=== PATIENT | male | born 1950 | race Caucasian/White ===

== ENCOUNTER 2017-07-21 13:23 | Observation (INO) | payer BC ==
[2017-07-21] MEDS ORDERED: Diltiazem IV* 5 MG/ML 5 ML VIAL (for loading dose/IV Push) (25 MG) IV SLOW PU ONE (13:45)
[2017-07-21 13:47] LABS: ABS Basophils 0 10^3/ul (0-0.2); ABS Eosinophils 0 10^3/ul (0-0.6); ABS Lymphocytes 0.4 10^3/ul (1.0-4.8); ABS Monocytes 0.3 10^3/ul (0-0.8); ABS Neutrophils 3.3 10^3/ul (1.5-7.7); ABS Nucleated RBC 0 10^3/ul; Eosinophil % 0.8 % (0-6); Hematocrit 40 % (42-52); Hemoglobin 13.6 g/dl (14.0-18.0); Lymphocyte % 9.7 % (25-47); Mean Corpuscular HGB Conc 34 g/dl (31-36); Mean Corpuscular Hemoglobin 31 pg (27-31); Mean Corpuscular Volume 91 fL (80-94); Mean Platelet Volume 7.4 um3 (7.4-10.4); Nucleated Red Blood Cells % 0.1; Platelet Count 220 10^3/ul (150-450); Red Blood Count 4.38 10^6/ul (4.0-5.4); Red Cell Distribution Width 15 % (10.5-15)
[2017-07-21] MEDS: NS 0.9% 1000 ML* 2,000 ML IV ONE ×2 (14:07→14:08)
[2017-07-21] MEDS ORDERED: Magnesium Sulfate 2 GM IV* 2 GM/50 ML BAG IVPB ONE (14:12)
[2017-07-21 14:18] LABS: INR 0.98 (0.77-1.02)
--- NOTE | 2017-07-21 14:22 | RAD ---
INDICATION: No onset rapid atrial fibrillation. COMPARISON: Comparison is made with prior chest x-ray study from March 30, 2017. TECHNIQUE: A portable view of the chest was obtained. FINDINGS: Cardiac and mediastinal contours appear to be within normal limits. The lungs are clear. No pleural effusion is seen. IMPRESSION: NO EVIDENCE FOR ACUTE DISEASE.
[2017-07-21] MEDS ORDERED: Aspirin 81 mg CHEW TAB* 81 MG TAB.CHEW PO ONE (14:38)
--- NOTE | 2017-07-21 15:52 | ED ---
Jesus Manuel Rolon Jennifer scribed for Jeramy Aldridge MD on 07/21/17 at 1337 . Palpitations / Dysrhythmia - HPI Summary HPI Summary: The patient is a 67 year old male who presents with afib that began today. The patient was prepping for a colonoscopy today, but he was found to be in afib and sent to the ED. The patient does not have a history of afib. He complains of a little shortness of breath while going up the stairs yesterday. The patient denies ankle swelling. He denies taking blood thinners. - History of Current Complaint Chief Complaint: EDDysrhythmPalp Time Seen by Provider: 07/21/17 13:24 Hx Obtained From: Patient Onset/Duration: Sudden Onset, Lasting Days - 1 day, Still Present Timing: Constant Severity Initially: Mild Severity Currently: Mild Character: Fast, Irregular Aggravating: Exertion Alleviating: Nothing Associated Signs & Symptoms: Negative - ankle swelling, Shortness of Breath - Allergy/Home Medications Allergies/Adverse Reactions: Allergies Allergy/AdvReac Type Severity Reaction Status Date / Time No Known Allergies Allergy Verified 06/14/13 09:49 Home Medications: Home Medications Cholecalciferol (Vitamin D3) [Vitamin D3] 2,000 units PO DAILY 07/21/17 [ History Confirmed 07/21/17] Cyanocobalamin TAB* [Vitamin B12 TAB*] 1,500 mcg PO DAILY 07/21/17 [History Confirmed 07/21/17] PMH/Surg Hx/FS Hx/Imm Hx Endocrine/Hematology History: Denies: Hx Diabetes Cardiovascular History: Reports: Hx Hypertension - medicated Denies: Hx Atrial Fibrillation, Hx Pacemaker/ICD History: Denies: Hx Renal Disease Musculoskeletal History: Reports: Hx Arthritis Sensory History: Reports: Hx Contacts or Glasses - GLASSES FOR NIGHT DRIVING Denies: Hx Hearing Aid Opthamlomology History: Reports: Hx Contacts or Glasses - GLASSES FOR NIGHT DRIVING Psychiatric History: Denies: Hx Panic Disorder - Surgical History Surgery Procedure, Year, and Place: 2012 COLONOSCOPY, [facility] [place]. EXCISION CYST FROM BACK, FOREHEAD AND LEFT RING FINGER, [facility] (YEARS AGO) Hx Anesthesia Reactions: No Infectious Disease History: No Infectious Disease History: Denies: Traveled Outside the [place] in Last 30 Days - Family History Known Family History: Positive: Hypertension - Father - Social History Alcohol Use: Daily Alcohol Amount: two glasses per day Substance Use Type: Reports: None Smoking Status (MU): Former Smoker Type: Cigarettes Amount Used/How Often: LESS THAN A PPD Review of Systems Positive: Palpitations, Other - Afib Positive: Shortness Of Breath Negative: Edema All Other Systems Reviewed And Are Negative: Yes Physical Exam - Summary Physical Exam Summary: General: well-appearing, no pain distress Skin: warm, color reflects adequate perfusion, dry Head: normal Eyes: EOMI, TIFF ENT: normal Neck: supple, nontender Respiratory: CTA, breath sounds present Cardiovascular: Tachycardic. Irregularly irregular rhythm. Abdomen: soft, nontender Bowel: present Musculoskeletal: normal, strength/ROM intact Neurological: normal, sensory/motor intact, A&O x3 Psychological: affect/mood appropriate Triage Information Reviewed: Yes Vital Signs On Initial Exam: Initial Vitals Temp Pulse Resp BP Pulse Ox 99.4 F 115 19 138/85 99 07/21/17 13:24 07/21/17 13:24 07/21/17 13:24 07/21/17 13:24 07/21/17 13:24 Vital Signs Reviewed: Yes Diagnostics - Vital Signs Vital Signs Temp Pulse Resp BP Pulse Ox 07/21/17 13:24 99.4 F 115 19 138/85 99 - Laboratory Lab Results: Lab Results 07/21/17 07/21/17 07/21/17 Range/Units 13:31 13:31 13:31 WBC (3.5-10.8) 10^3/ul RBC (4.0-5.4) 10^6/ul Hgb (14.0-18.0) g/dl Hct (42-52) % MCV (80-94) fL MCH (27-31) pg MCHC (31-36) g/dl RDW (10.5-15) % Plt Count (150-450) 10^3/ul MPV (7.4-10.4) um3 Neut % (Auto) (38-83) % Lymph % (Auto) (25-47) % [place] % (Auto) (0-7) % Eos % (Auto) (0-6) % Baso % (Auto) (0-2) % Absolute Neuts (auto) (1.5-7.7) 10^3/ul Absolute Lymphs (auto) (1.0-4.8) 10^3/ul Absolute Monos (auto) (0-0.8) 10^3/ul Absolute Eos (auto) (0-0.6) 10^3/ul Absolute Basos (auto) (0-0.2) 10^3/ul Absolute Nucleated RBC 10^3/ul Nucleated RBC % INR (Anticoag Therapy) 0.98 (0.77-1.02) APTT 33.5 (26.0-36.3) seconds D-Dimer, Quantitative < 200 (Less Than 230) ng/mL Sodium 140 (139-145) mmol/L Potassium 4.4 (3.5-5.0) mmol/L Chloride 106 (101-111) mmol/L Carbon Dioxide 27 (22-32) mmol/L Anion Gap 7 (2-11) mmol/L BUN 12 (6-24) mg/dL Creatinine 1.03 (0.67-1.17) mg/dL Est GFR ( Amer) 92.6 (>60) Est GFR (Non-Af Amer) 72.0 (>60) BUN/Creatinine Ratio 11.7 (8-20) Glucose 96 (70-100) mg/dL Lactic Acid (0.5-2.0) mmol/L Calcium 9.1 (8.6-10.3) mg/dL Magnesium 1.7 L (1.9-2.7) mg/dL Total Bilirubin 1.00 (0.2-1.0) mg/dL AST 19 (13-39) U/L ALT 17 (7-52) U/L Alkaline Phosphatase 89 (34-104) U/L Total Creatine Kinase 259 H (10-223) U/L CK-MB (CK-2) 16.1 H (0.6-6.3) ng/mL Troponin I 0.05 H* (<0.04) ng/mL C-Reactive Protein 1.16 (< 5.00) mg/L B-Natriuretic Peptide 243 H ( - 100) pg/mL Total Protein 5.8 L (6.4-8.9) g/dL Albumin 3.8 (3.2-5.2) g/dL Globulin 2.0 (2-4) g/dL Albumin/Globulin Ratio 1.9 (1-3) Lipase 17 (11.0-82.0) U/L TSH 1.46 (0.34-5.60) mcIU/mL 07/21/17 07/21/17 Range/Units 13:31 13:31 WBC 4.0 (3.5-10.8) 10^3/ul RBC 4.38 (4.0-5.4) 10^6/ul Hgb 13.6 L (14.0-18.0) g/dl Hct 40 L (42-52) % MCV 91 (80-94) fL MCH 31 (27-31) pg MCHC 34 (31-36) g/dl RDW 15 (10.5-15) % Plt Count 220 (150-450) 10^3/ul MPV 7.4 (7.4-10.4) um3 Neut % (Auto) 81.1 (38-83) % Lymph % (Auto) 9.7 L (25-47) % [place] % (Auto) 8.2 H (0-7) % Eos % (Auto) 0.8 (0-6) % Baso % (Auto) 0.2 (0-2) % Absolute Neuts (auto) 3.3 (1.5-7.7) 10^3/ul Absolute Lymphs (auto) 0.4 L (1.0-4.8) 10^3/ul Absolute Monos (auto) 0.3 (0-0.8) 10^3/ul Absolute Eos (auto) 0 (0-0.6) 10^3/ul Absolute Basos (auto) 0 (0-0.2) 10^3/ul Absolute Nucleated RBC 0 10^3/ul Nucleated RBC % 0.1 INR (Anticoag Therapy) (0.77-1.02) APTT (26.0-36.3) seconds D-Dimer, Quantitative (Less Than 230) ng/mL Sodium (139-145) mmol/L Potassium (3.5-5.0) mmol/L Chloride (101-111) mmol/L Carbon Dioxide (22-32) mmol/L Anion Gap (2-11) mmol/L BUN (6-24) mg/dL Creatinine (0.67-1.17) mg/dL Est GFR ( Amer) (>60) Est GFR (Non-Af Amer) (>60) BUN/Creatinine Ratio (8-20) Glucose (70-100) mg/dL Lactic Acid 1.1 (0.5-2.0) mmol/L Calcium (8.6-10.3) mg/dL Magnesium (1.9-2.7) mg/dL Total Bilirubin (0.2-1.0) mg/dL AST (13-39) U/L ALT (7-52) U/L Alkaline Phosphatase (34-104) U/L Total Creatine Kinase (10-223) U/L CK-MB (CK-2) (0.6-6.3) ng/mL Troponin I (<0.04) ng/mL C-Reactive Protein (< 5.00) mg/L B-Natriuretic Peptide ( - 100) pg/mL Total Protein (6.4-8.9) g/dL Albumin (3.2-5.2) g/dL Globulin (2-4) g/dL Albumin/Globulin Ratio (1-3) Lipase (11.0-82.0) U/L TSH (0.34-5.60) mcIU/mL Result Diagrams: 07/21/17 13:31 07/21/17 13:31 Lab Statement: Any lab studies that have been ordered have been reviewed, and results considered in the medical decision making process. - Radiology CXR Xray Interpretation: No Acute Changes - NO EVIDENCE FOR ACUTE DISEASE. Dr. Aldridge has reviewed this report. Radiology Interpretation Completed By: Radiologist - EKG 12:47 EKG Rhythm: Atrial Fibrillation - 131 BPM EKG Interpretation: Low voltage in extremity leads 13:29 EKG Rhythm: Atrial Fibrillation - 98 BPM EKG Interpretation: Low voltage in extremity leads 14:54 EKG Rhythm: Atrial Fibrillation - 77 BPM EKG Interpretation: Low voltage in extremity leads Course/Dx - Course Course Of Treatment: Medications reviewed. BP noted and advised to follow up with PCP. STABLE IN ED. ADMIT HOSPITALIST. CRITICAL CARE TIME LESS THAN 30 MINUTES. - Diagnoses Provider Diagnoses: HTN (hypertension), New onset a-fib, Elevated troponin - Physician Notifications Discussed Care Of Patient With: Piyush Bowman Time Discussed With Above Provider: 14:27 Instructed by Provider To: Admit As Inpatient Discharge - Sign-Out/Discharge Documenting (check all that apply): Discharge - Discharge Plan Condition: Stable Disposition: ADMITTED TO [facility] Referrals: Dudley Marlow MD [Primary Care Provider] - Additional Instructions: Your blood pressure was elevated during todays visit; please follow up with your primary care provider within a week for further evaluation Follow up with your primary care physician in three days. Return to the emergency department for any new or worsening symptoms. - Billing Disposition and Condition Condition: STABLE Disposition: [facility]P-[facility] [place] The documentation as recorded by the Jesus Manuel valdes Jennifer accurately reflects the service I personally performed and the decisions made by me, Jeramy Aldridge MD.
--- NOTE | 2017-07-21 16:20 | ADMNOTE ---
Subjective Date of Service: 07/21/17 Interval History: ADMISSION HISTORY AND PHYSICAL EXAM: Allergies Allergy/AdvReac Type Severity Reaction Status Date / Time No Known Allergies Allergy Verified 06/14/13 09:49 Home Medications Medication Instructions Recorded Confirmed Type Aspirin [Aspirin Adult Low Dose] 81 mg PO QAM 03/15/15 07/21/17 History Folic Acid TAB* [Folvite TAB*] 1 mg PO DAILY 07/18/17 07/21/17 History Lisinopril TAB* [Prinivil TAB*] 5 mg PO DAILY 07/18/17 07/21/17 History Cholecalciferol (Vitamin D3) 2,000 units PO DAILY 07/21/17 07/21/17 History [Vitamin D3] Cyanocobalamin TAB* [Vitamin B12 1,500 mcg PO DAILY 07/21/17 07/21/17 History TAB*] HPI: The patient came to the hospital for his 4th screening colonoscopy after the usual prep. He was a little weak and occ light-headed at home but attributed this to not having eaten for over a day. He never had palpitations or chest pain. He was found to be in atrial fib in the endoscopy suite and was sent to the Ed. Family History: Findings - Father had colon cancer. Social History: Findings - 2-3 drinks on Tue and Sat, 1 beer per day other days. Quit smoking 10 yrs ago. 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 Past Medical History: Findings - Hosp once only for syncope 3 yrs ago. Review of Systems - Measurements Intake and Output: Intake and Output Last 24 Hours 07/19/17 07/20/17 07/21/17 07/22/17 06:59 06:59 06:59 06:59 Weight 210 lb - Review of Systems Constitutional Symptoms: Negative: Weight Gain, Weight Loss, Weakness, Fatigue, Fever, Night Sweats, Unexplained Falls, Other Dermatology: Positive: Normal HEENT: Positive: Normal Eyes: Positive: Normal Thyroid: Positive: Normal Pulmonary: Positive: Other - Noisy breathing at night. Cardiology: Positive: Faintness Gastroenterology: Positive: Normal Genital - Urinary: Positive: Normal Musculoskeletal: Negative: Joint Pain, Joint Stiffness, Arthritis, Osteoporosis, Low Back Pain , Sciatica, Joint Deformities, Kyphoscoliosis, Other Endocrinology: Positive: Normal Hematologic/Lymphatic: Negative: Anemia, Easy Brusing, Hx Leukemia, Hx Lymphoma, Use of Anticoagulant, Use of Antiplatelet Drugs, Other Neurology: Positive: Normal Psychiatry: Positive: Normal Allergic/Immunologic: Negative: Hx Anaphylaxis, Hx Angioedema, Hx Environmental, Hx Seasonal, Athsma, Hx HIV, Immunocompromise, Swollen Glands LymphNodes, Other Objective Active Medications: Cyanocobalamin (Vitamin B12 Tab*) 1,500 mcg PO DAILY [facility] Folic Acid (Folvite Tab*) 1 mg PO DAILY [facility] Metoprolol Succinate (Toprol Xl Tab*) 50 mg PO BID [facility] Rivaroxaban (Xarelto(*)) 20 mg PO Q24H [facility] Vital Signs - 8 hr 07/21/17 07/21/17 07/21/17 13:24 13:28 14:00 Temperature 99.4 F Pulse Rate 115 Respiratory 19 17 17 Rate Blood Pressure 138/85 (mmHg) O2 Sat by Pulse 99 Oximetry 07/21/17 07/21/17 07/21/17 14:07 14:37 15:00 Temperature Pulse Rate 80 70 76 Respiratory 16 15 17 Rate Blood Pressure 132/82 102/80 (mmHg) O2 Sat by Pulse 96 97 96 Oximetry 07/21/17 07/21/17 07/21/17 15:08 15:37 16:00 Temperature Pulse Rate 74 88 92 Respiratory 18 17 18 Rate Blood Pressure 123/83 125/91 (mmHg) O2 Sat by Pulse 95 95 96 Oximetry 07/21/17 16:07 Temperature Pulse Rate 78 Respiratory 16 Rate Blood Pressure 113/76 (mmHg) O2 Sat by Pulse 96 Oximetry Oxygen Devices in Use Now: None Appearance: Alert, partly up on ED stretcher. In good spirits. Looks comfortable. Eyes: No Scleral Icterus Neck: NL Appearance and Movements; NL JVP, No Thyroid Enlargement, Masses Respiratory: Symmetrical Chest Expansion and Respiratory Effort, Clear to Auscultation, Clear to Percussion Cardiovascular: RRR, No Edema, - - irreg Extremities: No Edema, No Clubbing, Cyanosis, - Skin: No Rash or Ulcers, No Nodules or Sclerosis, - Neurological: Alert and Oriented x 3, NL Sensation Result Diagrams: 07/21/17 13:31 07/21/17 13:31 Additional Lab and Data: Lab Results 07/21/17 07/21/17 07/21/17 Range/Units 13:31 13:31 13:31 WBC (3.5-10.8) 10^3/ul RBC (4.0-5.4) 10^6/ul Hgb (14.0-18.0) g/dl Hct (42-52) % MCV (80-94) fL MCH (27-31) pg MCHC (31-36) g/dl RDW (10.5-15) % Plt Count (150-450) 10^3/ul MPV (7.4-10.4) um3 Neut % (Auto) (38-83) % Lymph % (Auto) (25-47) % [place] % (Auto) (0-7) % Eos % (Auto) (0-6) % Baso % (Auto) (0-2) % Absolute Neuts (auto) (1.5-7.7) 10^3/ul Absolute Lymphs (auto) (1.0-4.8) 10^3/ul Absolute Monos (auto) (0-0.8) 10^3/ul Absolute Eos (auto) (0-0.6) 10^3/ul Absolute Basos (auto) (0-0.2) 10^3/ul Absolute Nucleated RBC 10^3/ul Nucleated RBC % INR (Anticoag Therapy) 0.98 (0.77-1.02) APTT 33.5 (26.0-36.3) seconds D-Dimer, Quantitative < 200 (Less Than 230) ng/mL Sodium 140 (139-145) mmol/L Potassium 4.4 (3.5-5.0) mmol/L Chloride 106 (101-111) mmol/L Carbon Dioxide 27 (22-32) mmol/L Anion Gap 7 (2-11) mmol/L BUN 12 (6-24) mg/dL Creatinine 1.03 (0.67-1.17) mg/dL Est GFR ( Amer) 92.6 (>60) Est GFR (Non-Af Amer) 72.0 (>60) BUN/Creatinine Ratio 11.7 (8-20) Glucose 96 (70-100) mg/dL Lactic Acid (0.5-2.0) mmol/L Calcium 9.1 (8.6-10.3) mg/dL Magnesium 1.7 L (1.9-2.7) mg/dL Total Bilirubin 1.00 (0.2-1.0) mg/dL AST 19 (13-39) U/L ALT 17 (7-52) U/L Alkaline Phosphatase 89 (34-104) U/L Total Creatine Kinase 259 H (10-223) U/L CK-MB (CK-2) 16.1 H (0.6-6.3) ng/mL Troponin I 0.05 H* (<0.04) ng/mL C-Reactive Protein 1.16 (< 5.00) mg/L B-Natriuretic Peptide 243 H ( - 100) pg/mL Total Protein 5.8 L (6.4-8.9) g/dL Albumin 3.8 (3.2-5.2) g/dL Globulin 2.0 (2-4) g/dL Albumin/Globulin Ratio 1.9 (1-3) Lipase 17 (11.0-82.0) U/L TSH 1.46 (0.34-5.60) mcIU/mL 07/21/17 07/21/17 Range/Units 13:31 13:31 WBC 4.0 (3.5-10.8) 10^3/ul RBC 4.38 (4.0-5.4) 10^6/ul Hgb 13.6 L (14.0-18.0) g/dl Hct 40 L (42-52) % MCV 91 (80-94) fL MCH 31 (27-31) pg MCHC 34 (31-36) g/dl RDW 15 (10.5-15) % Plt Count 220 (150-450) 10^3/ul MPV 7.4 (7.4-10.4) um3 Neut % (Auto) 81.1 (38-83) % Lymph % (Auto) 9.7 L (25-47) % [place] % (Auto) 8.2 H (0-7) % Eos % (Auto) 0.8 (0-6) % Baso % (Auto) 0.2 (0-2) % Absolute Neuts (auto) 3.3 (1.5-7.7) 10^3/ul Absolute Lymphs (auto) 0.4 L (1.0-4.8) 10^3/ul Absolute Monos (auto) 0.3 (0-0.8) 10^3/ul Absolute Eos (auto) 0 (0-0.6) 10^3/ul Absolute Basos (auto) 0 (0-0.2) 10^3/ul Absolute Nucleated RBC 0 10^3/ul Nucleated RBC % 0.1 INR (Anticoag Therapy) (0.77-1.02) APTT (26.0-36.3) seconds D-Dimer, Quantitative (Less Than 230) ng/mL Sodium (139-145) mmol/L Potassium (3.5-5.0) mmol/L Chloride (101-111) mmol/L Carbon Dioxide (22-32) mmol/L Anion Gap (2-11) mmol/L BUN (6-24) mg/dL Creatinine (0.67-1.17) mg/dL Est GFR ( Amer) (>60) Est GFR (Non-Af Amer) (>60) BUN/Creatinine Ratio (8-20) Glucose (70-100) mg/dL Lactic Acid 1.1 (0.5-2.0) mmol/L Calcium (8.6-10.3) mg/dL Magnesium (1.9-2.7) mg/dL Total Bilirubin (0.2-1.0) mg/dL AST (13-39) U/L ALT (7-52) U/L Alkaline Phosphatase (34-104) U/L Total Creatine Kinase (10-223) U/L CK-MB (CK-2) (0.6-6.3) ng/mL Troponin I (<0.04) ng/mL C-Reactive Protein (< 5.00) mg/L B-Natriuretic Peptide ( - 100) pg/mL Total Protein (6.4-8.9) g/dL Albumin (3.2-5.2) g/dL Globulin (2-4) g/dL Albumin/Globulin Ratio (1-3) Lipase (11.0-82.0) U/L TSH (0.34-5.60) mcIU/mL Assess/Plan/Problems-Billing Assessment: - Patient Problems (1) Atrial fibrillation Current Visit: Yes Status: Acute Code(s): I48.91 - UNSPECIFIED ATRIAL FIBRILLATION SNOMED Code(s): 04388040 Comment: Start rivaroxaban, metoprolol XL 50 mg 07/21. Discussed with Dr. Tsang. Possible OSCAR guided cardioversion 07/22. Second troponin ordered. (2) HTN (hypertension) Current Visit: Yes Status: Acute Code(s): I10 - ESSENTIAL (PRIMARY) HYPERTENSION SNOMED Code(s): 76734447 Comment: Hold lisinopril. Likely will not need while on BB. (3) Hypomagnesemia Current Visit: Yes Status: Acute Code(s): E83.42 - HYPOMAGNESEMIA SNOMED Code(s): 188436387 Comment: 2 gms IV mag ordered in ED.
[2017-07-21] MEDS ORDERED: Metoprolol Tartrate IV* 1 MG/ML 5 ML VIAL IV PRN (16:44)
[2017-07-21] MEDS ORDERED: Metoprolol Tartrate IV* 1 MG/ML 5 ML VIAL IV ONE (16:45)
[2017-07-21] MEDS ORDERED: Rivaroxaban TAB(*) 10 MG PO SCH (17:00)
--- NOTE | 2017-07-21 20:09 | CONS ---
CC: Dr. Marlow * CARDIOLOGY CONSULTATION REPORT: DATE OF CONSULT: 07/21/17 REFERRING PHYSICIAN: Dr. Ranjan Bowman. REASON FOR CARDIOLOGY CONSULT: Newly discovered atrial fibrillation prior to colonoscopy. HISTORY OF PRESENT ILLNESS: I was kindly asked to see this patient by Dr. Bowman for Cardiology consultation as the patient has newly diagnosed atrial fibrillation. The patient presented today for his colonoscopy and was found at that time to have atrial fibrillation with heart rates as high as 130s. The patient himself was essentially asymptomatic with it, including he denies palpitations. He noted a little bit of shortness of breath last night but that was transient and unclear. He denies chest pain. Since being in the emergency room, he has received 20 mg of intravenous diltiazem and his heart rate is now consistently under 100 BPM while remaining in atrial fibrillation. The patient does not have a history of atrial fibrillation. He had syncope several years ago, which was felt to be due to anemia from his CLL. He denies prior history of bypass surgery or PCI. The patient had a transthoracic echocardiogram completed 03/17/15 as an outpatient, which showed 60% to 65% left ventricular ejection fraction, felt to be hyperdynamic, normal cardiac chamber sizes, functionally benign heart valves. PAST MEDICAL HISTORY: Includes hypertension. PAST SURGICAL HISTORY: Tonsillectomy. OUTPATIENT MEDICATIONS: Lisinopril 5 mg once a day. ALLERGIES TO MEDICATIONS: None. He denies shrimp, seafood or dye allergy. FAMILY HISTORY: His father had a history of colon cancer and [place] and at the age of 72. No family history of stroke, no diabetes. SOCIAL HISTORY: The patient used to smoke 2 cigarettes per week and quit 10 years ago. He drinks 1 beer per night and 2 to 3 on the weekend and previously he had drunk much more alcohol. He does not use illicit drugs. He is and in fact he is accompanied by his in the emergency room where I am performing Cardiology consultation from where the patient is being admitted. This is his third to whom he has been for 3 years after being twice prior. 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 He walks 5 blocks to and 5 blocks back from work daily as well as walks his dog. He does drink coffee 16 to 18 ounces per day. REVIEW OF SYSTEMS: He denies personal history of stroke, TIA, cancer, vomiting blood, coughing up blood, bright red blood per rectum, bleeding stomach ulcers, renal calculi, cholelithiasis, asthma, emphysema, pneumonia, tuberculosis, home oxygen use, diabetes. He was told that he has mild to moderate sleep apnea on sleep study 20 years ago but was recommended to avoid weight gain for that. His states that the patient snores and "chokes" while he is sleeping. He does have hypertension. He denies prior AZ, congestive heart failure, cardiac surgery, cardiac murmurs, palpitations including currently. Denies psychiatric illnesses, lupus, psoriasis, seizures, Parkinson's disease, myasthenia gravis, thyroid disorders, liver disorders, kidney disorders, claudication symptoms, pulmonary emboli, deep venous thrombosis, peripheral arterial disease, peripheral edema. He does have a little bit of heartburn. All other review of systems is negative except as described above. PHYSICAL EXAM: Height 6 feet 2 inches, weight 210 pounds. Temperature 99.4 degrees Fahrenheit, pulses ranging from 78 to 115, blood pressure 138/85, O2 saturation 99%. On general exam, he is a well-appearing man, in no acute distress at rest. HEENT: Show the cranium is normocephalic, atraumatic. He has moist mucosal membranes. Neck veins are nondistended. There are no carotid bruits. Visible skin is warm and perfused. Affect appropriate, appears oriented. No significant kyphoscoliosis on back exam. Lungs are clear to auscultation. No wheezes, no rales. Cardiac Exam: S1, S2. Irregular rate, controlled. No significant murmurs, rubs, nor gallops. PMI is nondisplaced. Abdomen: Soft, nondistended, appears benign. Extremities without significant edema. Pulses appear grossly intact. DIAGNOSTIC STUDIES/LAB DATA: A 12-lead EKG completed 07/21/17 at 1450 shows atrial fibrillation at 77 beats per minute with a right axis deviation, low voltage in the extremity leads. When compared to prior EKG completed 07/21/17 at 1247, rapid atrial fibrillation at 131 beats per minute was seen. The patient's EKG, 03/15/15, showed sinus rhythm at 69 beats per minute. Sodium 140, potassium 4.4, chloride 106, bicarbonate 27, BUN 12, creatinine 1.03 , magnesium 1.7. Troponin 0.05. BNP 243. TSH 1.46. INR is 0.98. D-dimer less than 200. White blood cell count 4, hematocrit 40, platelet count 220. IMPRESSION: Mr. Mohr is a 67-year-old gentleman with a history of hypertension , alcohol use, untreated sleep apnea, caffeine use, incidentally found to have essentially asymptomatic atrial fibrillation prior to his colonoscopy today which has been canceled. I have discussed this in detail with the patient and his . I am making the following recommendations with which they are in agreement. RECOMMENDATIONS: 1. I will plan for transesophageal echocardiogram guided cardioversion in the morning with the patient as the exact onset of his atrial fibrillation is unknown. He does note that he was seen by his oncologist, Dr. Christian, 6 days ago with whom I have also discussed the patient's case. I reviewed the procedure of transesophageal echocardiogram-guided cardioversion in detail with the patient. I then performed a risk, benefit, alternative analysis with benefits being more definitive resumption of normal sinus rhythm after exclusion of intracardiac thrombus, alternatives being continued heart rate control with anticoagulation, which the patient is not interested in at least at this time. I then reviewed the risks of performing transesophageal echocardiogram and if appropriate followed by cardioversion; the patient is aware that this is not all inclusive list as I cannot anticipate all risks in all patients, but the litany of risks include the following: Oversedation from conscious sedation, risk of aspiration pneumonia from regurgitation of stomach contents, risks of trauma including oral-dental trauma, esophageal trauma, tracheal trauma, pulmonary trauma, gastric trauma, induction of cardioembolic phenomena, which will be less likely given transesophageal echocardiogram guidance for the cardioversion, chest wall electrical abrasion and/or risk of induction of tachy and/or grisel arrhythmias. The patient had the opportunity to ask questions, all of which were answered to his self-stated satisfaction. The patient stated in a clear, competent, and coherent fashion at the conclusion of our discussion , he wished to go forward with this transesophageal echocardiogram-guided cardioversion which he will make arrangements for. 2. We have recommended the patient discontinue alcohol use and caffeine use. 3. Outpatient sleep apnea evaluation given that he was diagnosed with mild-to- moderate sleep apnea 20 years ago and his noticed that the patient snores and "chokes all night" while sleeping. 4. Keep potassium greater than 4, magnesium greater than 2. 5. Start Xarelto 20 mg given his CHADS2-VASC score of at least 2 and he would benefit from oral anticoagulation lifelong. Per the patient's oncologist, Dr. Christian, OAC is not contraindicated. Will also start the patient on Toprol XL 50 mg po qday for heart rate control. 6. Other management as per the hospitalist medicine service and I have also discussed the case with Dr. Bowman of the hospitalist medicine service. The patient has requested to follow up with myself following discharge, which we are happy to accommodate. Dear Dr. Bowman, many thanks for asking me to perform cardiovascular consultation for Mr. Mohr. Please do not hesitate to contact me if you have any questions or concerns regarding the patient's cardiovascular consultative care. [id number]/[facility] #: [id number] MTDD
[2017-07-21] MEDS ORDERED: Metoprolol Succinate XL TAB* 25 MG PO SCH (21:00)
--- NOTE | 2017-07-22 04:53 | PN ---
Progress Note - Progress Note Date of Service: 07/22/17 Note: Paged for 2 second pause. Will change metoprolol xl from bid to QD and lower to 25 mg qd.
[2017-07-22] MEDS ORDERED: Folic Acid TAB* 1 MG PO SCH (09:00)
[2017-07-22] MEDS ORDERED: Metoprolol Succinate XL TAB* 25 MG PO SCH (09:00)
[2017-07-22] MEDS ORDERED: Cyanocobalamin TAB* 500 MCG PO SCH (09:00)
[2017-07-22] MEDS ORDERED: Midazolam* 1 MG/ML 10 ML VIAL (10 MG) ONE (09:02)
[2017-07-22] MEDS ORDERED: fentaNYL* 50 MCG/ML 2 ML VIAL (100 MCG VIAL) ONE (09:02)
[2017-07-22] MEDS ORDERED: Lidocaine 2% VISCOUS* 15 ML UDC ONE (09:02)
--- NOTE | 2017-07-22 11:56 | TEE ---
Amended Report Patient: SAMUEL DOMÍNGUEZ [facility] Rec#: [id number] : 1950 Date: 07/22/2017 Age: 67y Height: 190.5 cm / 75.0 in Weight: 94.35 kg / 207.9 lbs Sex: M BSA: 2.23 Room#: [facility] Type: Inpatient Referring: Warren Tsang MD Performing: Warren Tsang MD Reading: Warren Tsang MD Aviation Consultant: Susana Branham RDCS Nurse: Siomara Wakefield RN CC: Dudley Marlow MD Transesophageal Echocardiogram Indication: Atrial Fibrillation BP: 139/102 HR: 86 Rhythm: A-Fib Findings History: HTN, former smoker, CARINE, macrocytic anemia. Technical Comments: The study quality is good. Left Ventricle: The left ventricular chamber size is normal. Global left ventricular wall motion and contractility are within normal limits. There is normal left ventricular systolic function. The estimated ejection fraction is 50-55%. The assessment of diastolic function is non-diagnostic. Left Atrium: The left atrium is mildly dilated. The left atrial appendage velocity is mildly reduced. There is a possible thrombus visualized in the left atrium.within the left atrial appendage with left atrial echo smoke also noted. Pectinate muscle also noted within left atrial appendage. Right Ventricle: The right ventricular cavity size is normal. The right ventricular global systolic function is normal. Right Atrium: The right atrial cavity size is normal. Interatrial septum appears intact without evidence of shunting. The bubble study is negative. A patent foramen ovale is not demonstrated with color Doppler and agitated contrast. Aortic Valve: The aortic valve is trileaflet. There is no evidence of aortic valve thickening. There is no evidence of aortic regurgitation. There is no evidence of aortic stenosis. Mitral Valve: The mitral valve leaflets do not appear thickened. There is a trace of mitral regurgitation. Tricuspid Valve: The tricuspid valve structure is not well visualized. There is no evidence of tricuspid valve regurgitation. Pulmonic Valve: The pulmonic valve structure is not well visualized. There is no evidence of pulmonic regurgitation. There is no pulmonic stenosis. Pericardium: There is no significant pericardial effusion. Aorta: There is mild dilatation of the ascending aorta. The aortic root is normal in size. There is plaque visualized in the transverse aorta. There is mild non-mobile atherosclerotic plaque in the visualized segments of the aorta. Pulmonary Artery: The main pulmonary artery appears normal. Venous: The bicaval view was obtained and appears normal. The pulmonary veins appear normal. 4 of 4 visualized. The pulmonary veins appear normal in size. OSCAR Procedures: All standard views were attempted within the limitations of patient tolerance and safety. History and physical as well as labs were reviewed. The patient was in a fasting state. Risks and benefits of the procedure, including alternatives, were discussed and written informed consent was obtained. The patient and/or their health care title insurance sales representative expressed understanding of the procedure, risks and benefits. Baseline and continuous monitoring of blood pressure, heart rate, pulse oximetry and heart rhythm was performed throughout the procedure. The appropriate time-out procedure was performed as per [facility] protocol. The patient was placed in the left lateral decubitus position. The patient's posterior pharynx was anesthetized with 20ml of 2% viscous lidocaine. The patient received IV Midazolam with a total dose of 7 mg. The patient received IV Fentanyl with a total dose of 100 mcg. An oral bite block was inserted for protection of oral dentition. The multiplane transesophageal echocardiogram probe was inserted through the posterior oropharynx and advanced into the esophagus without difficulty. Multiple 2D images were obtained of the heart and its related structures. Color flow Doppler was used for evaluation. Spectral Doppler was also used. The atrial septum was interrogated with color flow Doppler. At the conclusion of the procedure the probe was removed with continuous suction without complications. The patient tolerated the procedure with no apparent complications. Contrast: Normal saline was used as contrast for the bubble study. Image 46. Intravenous contrast was used to help determine presence of intracardiac shunting. Conclusions There is normal left ventricular systolic function. Visually estimated left ventricular function is 50-55%. The left ventricular chamber size is normal. Global left ventricular wall motion and contractility are within normal limits. The left atrium is mildly dilated. There is thrombus visualized within the left atrial appendage. Functionally benign heart valves. Mildly dilated ascending aorta. There is no prior transesophageal echocardiogram available to compare with at this time. Measurements Name Value Normal Range Aortic Annulus 2.2 cm (1.4 - 2.6) Ao root diameter (2D) 3.3 cm (2.1 - 3.5) Ascending Ao 3.9 cm (2.1 - 3.4) Name Value Normal Range MV E-wave Vmax 0.71 m/sec - MV deceleration time 189.4 msec -
[2017-07-22 12:56] VITALS: BP 110/83
[2017-07-22] MEDS ORDERED: Rivaroxaban TAB(*) 10 MG PO ONE (13:00)
--- NOTE | 2017-07-22 13:50 | DS ---
CC: Dr. Tsang; Dr. Marlow. DISCHARGE SUMMARY: DATE OF ADMISSION: 07/21/17 DATE OF DISCHARGE: 07/22/17 HISTORY OF PRESENT ILLNESS: This 67-year-old man came to the hospital for his scheduled screening co lonoscopy. He had gone through the prep. At that time, he felt little lightheaded and weak, but he attributed this to not eating. He never had palpitations, chest pain, or shortness of breath. When he presented to the endoscopy suite and was hooked up to the monitor, he was found to be in atrial fi brillation with a rapid rate. On EKG, I believe, he was about 132. He was referred directly to the emergency room. The patient was scheduled for a OSCAR. For that reason, an echocardiogram was not ordered. At the OSCAR , he was found to have a clot and cardioversion was not performed. He was started on rivaroxaban the night before and this will be continued. He was also started on a beta fe. This will be repla ce the lisinopril, which he has been taking for his hypertension. I note that on the morning of , his blood pressure was 110/83 and 110/71. Other lab tests were unremarkable. His TSH has been within normal limits, as were his electrolytes. His creatinine was 1.03, his hemoglobin was 13.6, which is slightly below normal. The patient will follow up with Dr. Tsang in about 4 weeks. DISCHARGE DIAGNOSES: 1. Atrial fibrillation. 2. Hypertension. 3. History of chronic lymphocytic leukemia. DISCHARGE MEDICATIONS: 1. Metoprolol XL 50 mg every morning. 2. Rivaroxaban 20 mg every morning. 3. Aspirin 81 mg daily. 4. Folic acid 1 mg daily. 5. Vitamin B12 at 1000 mcg daily. 6. Vitamin D3 at 2000 units daily. [id number]/[facility] #: [id number]
[2017-07-23] MEDS ORDERED: Metoprolol Succinate XL TAB* 25 MG PO SCH (09:00)
[2017-07-23] MEDS ORDERED: Rivaroxaban TAB(*) 10 MG PO ONE (12:50)
[2017-07-23] MEDS ORDERED: Rivaroxaban TAB(*) 10 MG PO SCH (17:00)
== END 2017-07-22 13:37 | disposition home or self-care (01) ==
LOC: ED 13:23 → MEDTELE 15:40
PROVIDERS: ADMIT Internal Medicine; ATTEND Internal Medicine
DX: I48.91 Unspecified atrial fibrillation (principal); I10 Essential (primary) hypertension; E83.42 Hypomagnesemia; C91.10 Chronic lymphocytic leukemia of B-cell type not having achieved remission; R74.8 Abnormal levels of other serum enzymes; Z79.01 Long term (current) use of anticoagulants; Z79.899 Other long term (current) drug therapy; Z87.891 Personal history of nicotine dependence; I51.7 Cardiomegaly; I51.3 Intracardiac thrombosis, not elsewhere classified; R06.02 Shortness of breath
CPT/HCPCS: 36415; 71045; 80053; 82550; 82553; 83605; 83690; 83735; 83880; 84443; 84484; 85025; 85379; 85610; 85730; 86140; 93005; 93312; 93325; 96361; 96365; 96375; 99156; 99157; 99284; A9270-GY; G0378; J2250; J3010; J3475; J3490